=== PATIENT | male | born 1965 | race Caucasian/White ===

== ENCOUNTER 2023-11-17 07:41 | Inpatient (IN) | payer BC ==
[~2023-11-17] VITALS: Ht 180.3 cm; Wt 97.4 kg
[2023-11-17] VITALS (23 sets, daily range): BP systolic 71–144; BP diastolic 44–98; PULSE 73–93; RESP 10–20; TEMP 97.1–98.3; O2SAT 93–100
[2023-11-17 08:21] LABS: BASOPHILS # (AUTO) 0.1 X10'3 (0-0.2); BASOPHILS % (AUTO) 0.9 % (0-1); EOSINOPHILS # (AUTO) 0.3 X10'3 (0-0.9); EOSINOPHILS % (AUTO) 4.3 % (0-6); HEMATOCRIT 45.8 % (42.0-52.0); HEMOGLOBIN 15.3 g/dl (14.0-17.9); LYMPHOCYTES # (AUTO) 1.4 X10'3 (1.1-4.8); LYMPHOCYTES % (AUTO) 19.9 % (21-51); MEAN CORPUSCULAR HEMOGLOBIN 30.1 PG (27.0-31.0); MEAN CORPUSCULAR HGB CONC 33.4 g/dL (33.0-36.5); MEAN CORPUSCULAR VOLUME 90.1 FL (78-98); MEAN PLATELET VOLUME 6.7 FL (7.4-10.4); MONOCYTES # (AUTO) 0.6 X10'3 (0-0.9); MONOCYTES % (AUTO) 8.4 % (2-12); NEUTROPHILS # (AUTO) 4.8 X10'3 (1.8-7.7); NEUTROPHILS % (AUTO) 66.5 % (42-75); PLATELET COUNT 280 X10'3 (140-440); RED BLOOD COUNT 5.08 X10'6 (4.70-6.10); RED CELL DISTRIBUTION WIDTH 14.2 % (11.5-14.5); WHITE BLOOD COUNT 7.2 X10'3 (4.5-11.0)
[2023-11-17 08:36] LABS: ALANINE AMINOTRANSFERASE 95 U/L (12-78); ALBUMIN 3.5 G/DL (3.4-5.0); ALBUMIN/GLOBULIN RATIO 0.8 (1.1-1.5); ALKALINE PHOSPHATASE 64 IU/L (46-116); ANION GAP 7 (8-16); ASPARTATE AMINO TRANSFERASE 62 U/L (10-37); BILIRUBIN,TOTAL 1.7 MG/DL (0.1-1.0); BLOOD UREA NITROGEN 16 MG/DL (7-18); BUN/CREATININE RATIO 20.8 (10.0-20.0); CALCIUM 9.2 MG/DL (8.5-10.1); CHLORIDE 103 MMOL/L (99-107); CREATININE 0.77 MG/DL (0.60-1.10); GLUCOSE 95 MG/DL (70-104); POTASSIUM 3.9 MMOL/L (3.5-5.1); SODIUM 140 MMOL/L (135-145); TOTAL CARBON DIOXIDE 30.5 MMOL/L (24-32); TOTAL PROTEIN 7.7 G/DL (6.4-8.2); eCRCL 110 ML/MIN; eGFR > 90 ML/MIN
[2023-11-17] MEDS ORDERED: NORMAL SALINE IV ONE ×2 (09:50→16:00)
[2023-11-17] MEDS ORDERED: diphenhydrAMINE 25mg capsule PO PRN ×3 (09:50→16:20)
[2023-11-17] MEDS ORDERED: HYDROcodone/acetaminophen 10/325mg tab PO PRN ×2 (09:50)
[2023-11-17] MEDS ORDERED: HYDROmorphone inj. 0.5 MG/0.5 ML DISP.SYRIN IV PRN (09:50)
[2023-11-17] MEDS ORDERED: HYDROmorphone 1 mg/ml syringe IV PRN (09:50)
[2023-11-17] MEDS ORDERED: ondansetron/PF 4mg/2ml inj IV PRN ×2 (09:50→12:50)
[2023-11-17] MEDS ORDERED: naloxone 0.4 mg/ml inj IV PRN (09:50)
[2023-11-17] MEDS ORDERED: TRANEXAMIC ACID IV ONE ×2 (09:50→16:00)
[2023-11-17] MEDS ORDERED: bisacodyl 10mg suppository rectal RC PRN (09:50)
[2023-11-17] MEDS ORDERED: acetaminophen 325mg tablet PO PRN (09:50)
[2023-11-17] MEDS ORDERED: magnesium hydroxide 30ml (MOM) UD suspension PO PRN (09:50)
[2023-11-17] MEDS: potassium cl 20mEq in 1/2 NS 1,000 ML IV SCH (09:58)
[2023-11-17] MEDS: cefazolin 2gm/D5W 100mL 100 ML IV ONE (10:20)
[2023-11-17] MEDS: VANCOMYCIN 1,500MG inj. 1,500 MG in normal saline 500ml IV soln 300 ML IV ONE (11:23)
[2023-11-17] MEDS: famotidine 10mg tablet PO ONE (12:08)
[2023-11-17] MEDS: famotidine 20mg tablet PO ONE (12:28)
[2023-11-17] MEDS ORDERED: propofol inj 20 ML IV ONE (12:45)
[2023-11-17] MEDS ORDERED: midazolam 1 mg/ML 2ml injection ONE (12:45)
[2023-11-17] MEDS ORDERED: fentaNYL/PF 50MCG/1 ML 2ML syringe ONE (12:45)
[2023-11-17] MEDS ORDERED: sevoflurane 250ml liquid IH ONE (12:46)
[2023-11-17] MEDS ORDERED: meperidine/PF 25mg/ml syringe IV PRN ×2 (12:50)
[2023-11-17] MEDS ORDERED: morphine 2 MG/ML inj. syringe IV PRN (12:50)
[2023-11-17] MEDS ORDERED: morphine 4 MG/ML inj SYRINge IV PRN (12:50)
[2023-11-17] MEDS: ringers solution, lacted 1,000 ML IV SCH (12:50)
[2023-11-17] MEDS ORDERED: proCHLORperazine 10 MG/2 ml inj IV PRN (12:50)
[2023-11-17] MEDS: BUPIVACAINE/MELOXICAM 14 ML VIAL IL ONE ×2 (12:51→13:50)
[2023-11-17] MEDS: gabapentin 300mg capsule PO SCH (13:00)
[2023-11-17] MEDS: vancomycin 1,000mg inj ONE (13:09)
[2023-11-17] MEDS ORDERED: ondansetron/PF 4mg/2ml inj ONE (13:14)
[2023-11-17] MEDS ORDERED: ROPIVAcaine 0.5% (5mg/ml) 30ml vial ONE (13:41)
[2023-11-17] MEDS ORDERED: dexamethasone sod phosphate 4mg/ml inj. ONE (13:43)
[2023-11-17] MEDS ORDERED: acetaminophen 1,000mg/100ml IV 100 ML IV ONE (14:18)
[2023-11-17] MEDS: meperidine/PF 25mg/ml syringe IV PRN (14:30)
[2023-11-17] MEDS ORDERED: cefazolin 2gm/D5W 100mL 100 ML IV SCH (16:00)
[2023-11-17] MEDS ORDERED: ibuprofen 200mg tablet PO PRN (16:20)
[2023-11-17] MEDS: TRANEXAMIC ACID IV ONE (17:12)
[2023-11-17] MEDS: NORMAL SALINE IV ONE (17:12)
[2023-11-17] MEDS: cefazolin 2gm/D5W 100mL 100 ML IV SCH (20:54)
[2023-11-17] MEDS: VANCOMYCIN 1,500MG in NS 300ml IVPB IV SCH (20:54)
[2023-11-17] MEDS: ascorbic acid 500mg tablet PO SCH (20:54)
[2023-11-17] MEDS: sennosides 8.6mg tablet PO SCH (20:54)
[2023-11-17] MEDS: ZOLPIDEM 12.5 MG PO (21:57)
[2023-11-18 06:33] LABS: BASOPHILS % (AUTO) 0.1 % (0-1); EOSINOPHILS % (AUTO) 0 % (0-6); HEMATOCRIT 34.1 % (42.0-52.0); HEMOGLOBIN 11.4 g/dl (14.0-17.9); LYMPHOCYTES # (AUTO) 1.1 X10'3 (1.1-4.8); LYMPHOCYTES % (AUTO) 7.5 % (21-51); MEAN CORPUSCULAR HEMOGLOBIN 30.2 PG (27.0-31.0); MEAN CORPUSCULAR HGB CONC 33.4 g/dL (33.0-36.5); MEAN CORPUSCULAR VOLUME 90.5 FL (78-98); MEAN PLATELET VOLUME 7.2 FL (7.4-10.4); MONOCYTES # (AUTO) 0.6 X10'3 (0-0.9); MONOCYTES % (AUTO) 3.9 % (2-12); NEUTROPHILS % (AUTO) 88.5 % (42-75); PLATELET COUNT 285 X10'3 (140-440); RED BLOOD COUNT 3.77 X10'6 (4.70-6.10); RED CELL DISTRIBUTION WIDTH 14.3 % (11.5-14.5); WHITE BLOOD COUNT 14.7 X10'3 (4.5-11.0)
[2023-11-18 06:46] VITALS: RESP 15; O2SAT 96
[2023-11-18 06:52] LABS: ANION GAP 6 (8-16); CHLORIDE 104 MMOL/L (99-107); POTASSIUM 4.3 MMOL/L (3.5-5.1); SODIUM 137 MMOL/L (135-145); TOTAL CARBON DIOXIDE 26.6 MMOL/L (24-32)
[2023-11-18] MEDS: aspirin 325mg tablet PO SCH (07:01)
[2023-11-18] MEDS: multivitamins, therapeutics tablet PO SCH (07:02)
[2023-11-18] MEDS ORDERED: celeCOXIB 100mg capsule PO SCH (20:00)
== END 2023-11-18 10:45 | disposition home or self-care (01) | DRG 909 ==
LOC: ER 07:42 → ED HOLD 10:43 → ORTHO 4S 17:00
PROVIDERS: ADMIT Orthopaedic Surgery; ATTEND Orthopaedic Surgery
PROC: 0SUW09Z Supplement Left Knee Joint, Tibial Surface with Liner, Open Approach (ICD-10-PCS; 2023-11-17)
PROC: 0SPD09Z Removal of Liner from Left Knee Joint, Open Approach (ICD-10-PCS; principal; 2023-11-17 12:46)
DX: T81.89XA Other complications of procedures, not elsewhere classified, initial encounter (principal); Y83.8 Other surgical procedures as the cause of abnormal reaction of the patient, or of later complication, without mention of misadventure at the time of the procedure; I10 Essential (primary) hypertension; Z96.652 Presence of left artificial knee joint; Y92.89 Other specified places as the place of occurrence of the external cause
CPT/HCPCS: 99285; Z7506; Z7508; 36415; 80051; 80053; 82948; 85025; 86885; 86900; 86901; 87070; 87075; 87081; 97116; 97162; A4215; A4615; A4618; A7000; C1776; G0378; J0131; J0690; J1100; J2175; J2250; J2405; J2704; J2795; J3010; J3370; J3480; J3490; J7030; J7040; J7120

== ENCOUNTER 2023-12-15 08:09 | Observation (INO) | payer BC ==
[2023-12-15] VITALS (34 sets, daily range): BP systolic 127–158; BP diastolic 70–98; PULSE 68–91; RESP 11–23; TEMP 98–98.1; O2SAT 92–100
[~2023-12-15] VITALS: Ht 180.3 cm; Wt 97.8 kg
[2023-12-15] MEDS ORDERED: ZOLP12.52 PO (09:50)
[2023-12-15 12:48] LABS: BASOPHILS # (AUTO) 0.1 X10'3 (0-0.2); BASOPHILS % (AUTO) 0.8 % (0-1); EOSINOPHILS # (AUTO) 0.8 X10'3 (0-0.9); EOSINOPHILS % (AUTO) 10.5 % (0-6); LYMPHOCYTES # (AUTO) 1.7 X10'3 (1.1-4.8); LYMPHOCYTES % (AUTO) 21.8 % (21-51); MEAN CORPUSCULAR HEMOGLOBIN 29.8 PG (27.0-31.0); MEAN CORPUSCULAR HGB CONC 33.1 g/dL (33.0-36.5); MEAN PLATELET VOLUME 6.7 FL (7.4-10.4); MONOCYTES # (AUTO) 0.7 X10'3 (0-0.9); MONOCYTES % (AUTO) 8.7 % (2-12); NEUTROPHILS # (AUTO) 4.6 X10'3 (1.8-7.7); NEUTROPHILS % (AUTO) 58.2 % (42-75); PRE OP HEMATOCRIT 42.6 % (42.0-52.0); PRE OP HEMOGLOBIN 14.1 g/dL (14.0-17.9); PRE OP PLATELET COUNT 304 X10'3 (140-440); RED BLOOD COUNT 4.73 X10'6 (4.70-6.10); RED CELL DISTRIBUTION WIDTH 14.7 % (11.5-14.5)
[2023-12-15 12:52] LABS: PRE OP WHITE BLOOD COUNT 7.9 10'3 (4.8-10.8)
[2023-12-15 12:57] LABS: ALBUMIN 3.4 G/DL (3.4-5.0); ALBUMIN/GLOBULIN RATIO 0.9 (1.1-1.5); ALKALINE PHOSPHATASE 65 IU/L (46-116); BLOOD UREA NITROGEN 16 MG/DL (7-18); BUN/CREATININE RATIO 23.5 (10.0-20.0); CALCIUM 9.2 MG/DL (8.5-10.1); CHLORIDE 106 MMOL/L (99-107); CREATININE 0.68 MG/DL (0.60-1.10); PRE OP ANION GAP 8 (8-16); PRE OP AST 89 U/L (10-37); PRE OP BILIRUB, TOTAL 1.5 MG/DL (0.0-1.0); PRE OP GLUCOSE 90 MG/DL (70-104); PRE OP POTASSIUM 3.9 MMOL/L (3.4-5.1); PRE OP SODIUM 142 MMOL/L (135-145); TOTAL CARBON DIOXIDE 27.6 MMOL/L (24-32); TOTAL PROTEIN 7.3 G/DL (6.4-8.2); eCRCL 125 ML/MIN; eGFR > 90 ML/MIN
[2023-12-15] MEDS: VANCOMYCIN 1,500MG inj. 1,500 MG in normal saline 500ml IV soln 300 ML IV ONE (13:00)
[2023-12-15] MEDS: cefazolin 2gm/D5W 100mL 100 ML IV ONE (13:00)
[2023-12-15 13:01] LABS: PRE OP ALT 131 U/L (30-65)
[2023-12-15] MEDS: cloNIDine hcl/PF 100mcg/ml inj ONE (13:06)
[2023-12-15] MEDS: ROPIVAcaine 0.5% (5mg/ml) 30ml vial ONE ×2 (13:07→14:46)
[2023-12-15] MEDS: ketorolac trometh 30MG/ML vial 30 MG/ML VIAL ONE (13:07)
[2023-12-15] MEDS: vancomycin 1,000mg inj ONE (13:07)
[2023-12-15] MEDS: epiNEPHrine 1 mg/ml inj ONE (13:07)
[2023-12-15] MEDS: tranexamic acid 100mg/ml inj. ONE (13:07)
[2023-12-15] MEDS: BUPIVACAINE/MELOXICAM 14 ML VIAL IL ONE ×2 (13:08→14:11)
[2023-12-15] MEDS ORDERED: morphine 4 MG/ML inj SYRINge IV PRN (13:10)
[2023-12-15] MEDS ORDERED: fentaNYL/PF 50MCG/1 ML 2ML syringe IV PRN ×2 (13:10)
[2023-12-15] MEDS ORDERED: ondansetron/PF 4mg/2ml inj IV PRN (13:15)
[2023-12-15] MEDS ORDERED: hydrALAZINE 20mg/ml inj. IV PRN (13:15)
[2023-12-15] MEDS ORDERED: labetalol 20mg/4ml (5mg/ml) syringe IV PRN (13:15)
[2023-12-15] MEDS ORDERED: BUPIVACAINE liposomal/PF 13.3 MG/ML vial IM ONE (13:15)
[2023-12-15] MEDS: morphine 2 MG/ML inj. syringe IV PRN (15:43)
[2023-12-15] MEDS: traMADol 50MG tablet PO ONE (18:13)
[2023-12-15] MEDS: ringers solution, lacted 1,000 ML IV SCH (18:14)
[2023-12-15] MEDS: zolpidem 5mg tablet PO ONE (21:00)
[2023-12-15] MEDS: traMADol 50MG tablet PO PRN (23:05)
[2023-12-16 01:54] VITALS: BP 150/89; PULSE 101; RESP 18; TEMP 98; O2SAT 95
[2023-12-16 06:00] VITALS: BP 146/88; PULSE 105; RESP 18; TEMP 99; O2SAT 94
[2023-12-16 08:00] VITALS: RESP 18; O2SAT 94
[2023-12-16 09:50] VITALS: BP 144/88; PULSE 113; RESP 18; TEMP 98.9; O2SAT 94
== END 2023-12-16 10:50 | disposition home or self-care (01) ==
LOC: ER 08:10 → ORTHO 4S 19:51 → INTOOBSV 19:51
PROVIDERS: ADMIT Orthopaedic Surgery; ATTEND Orthopaedic Surgery
DX: S76.112A Strain of left quadriceps muscle, fascia and tendon, initial encounter (principal); M17.12 Unilateral primary osteoarthritis, left knee; G89.29 Other chronic pain; I10 Essential (primary) hypertension; F12.90 Cannabis use, unspecified, uncomplicated; Z90.49 Acquired absence of other specified parts of digestive tract; Z79.899 Other long term (current) drug therapy; W19.XXXA Unspecified fall, initial encounter; Y93.89 Activity, other specified; Y92.89 Other specified places as the place of occurrence of the external cause; Y99.8 Other external cause status
CPT/HCPCS: 27381; 27386; 36415; 64447; 80053; 82948; 85025; 87081; 97116; 97161; 97530; 99284; C1776; C9290; G0378; J0171; J0690; J0735; J1885; J2250; J2270; J2704; J2795; J3010; J3370; J3490; J7120; 99285; A4215; A7000